=== PATIENT | female | born 2000 | race Caucasian/White ===

== ENCOUNTER 2021-07-23 18:58 | Emergency (ER) | payer OTHER ==
[~2021-07-23] VITALS: Ht 165.1 cm; Wt 61.2 kg
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
[2021-07-23] MEDS ORDERED: KETOROLAC TROMETHAMINE INJ 60 MG/2 ML VIAL IM ONE (20:00)
[2021-07-23] MEDS ORDERED: KETOROLAC TROMETHAMINE INJ 30 MG/ML VIAL ONE (20:01)
--- NOTE | 2021-07-23 20:12 | NUR ---
URINE COLLECTED AND SENT TO LAB
--- NOTE | 2021-07-23 20:50 | NUR ---
PT TAKEN TO CT VIA [facility]
[2021-07-23] MEDS ORDERED: CYCL5TAB PO (21:26)
[2021-07-23] MEDS ORDERED: IBUP-1955 PO (21:26)
--- NOTE | 2021-07-23 21:54 | NUR ---
CALLED [facility] TO HAVE HEAD CT READ. PER [facility], READ, BUT WILL PUSH IT THROUGH THE SYSTEM AGAIN
[2021-07-23 22:05] VITALS: BP 121/70
--- NOTE | 2021-07-23 22:09 | NUR ---
Patient discharged to home in stable condition. Written and verbal after care instructions given. Patient verbalizes understanding of instruction. Rx given.
== END 2021-07-23 22:07 | disposition home or self-care (01) ==
LOC: ER 19:20
DX: S16.1XXA Strain of muscle, fascia and tendon at neck level, initial encounter (principal); S20.212A Contusion of left front wall of thorax, initial encounter; M25.551 Pain in right hip; Z60.2 Problems related to living alone; V49.49XA Driver injured in collision with other motor vehicles in traffic accident, initial encounter; Y93.89 Activity, other specified; Y92.413 State road as the place of occurrence of the external cause; Y99.8 Other external cause status
CPT/HCPCS: 70450; 70486; 71045; 72125; 72170; 84703; 96372; 99285; J1885